=== PATIENT | female | born 1970 | race Caucasian/White ===

== ENCOUNTER 2016-12-08 01:08 | Emergency (ER) | payer MEDICAID, OTHER ==
[2016-12-08] MEDS ORDERED: DIPHENHYDRAMINE HCL 50 MG/ML VIAL IV ONE (02:11)
[2016-12-08] MEDS ORDERED: METOCLOPRAMIDE HCL INJ/PF 10 MG/2 ML SDV IV ONE (02:11)
[2016-12-08] MEDS ORDERED: NORMAL SALINE 1000 ML 500 ML IV ONE (02:12)
[2016-12-08] MEDS ORDERED: MORPHINE SULFATE 10 MG/ML INJ IV ONE (02:12)
--- NOTE | 2016-12-08 02:14 | ER Document Report ---
ED Headache - General Chief Complaint: Headache >24 hrs old Stated Complaint: HEAD PAIN Time Seen by Provider: 12/08/16 02:02 Notes: Patient is a 46-year-old female who comes emergency department for chief complaint of a headache. Headache is throbbing, frontal, she states that she has light and sound sensitivity, she states headache began several days ago but she cannot seem to get rid of it. She has a past medical history of migraines, states she was told they are secondary to a brain aneurysm, she had an MRI and MRA, she has pending follow-up with neurosurgery, she states that she normally takes hydrocodone 10 mg up to 3 times a day if needed, she [place] from [place] but looking to move to this area and looking for a house. She states that she has had a couple of episodes of vomiting per day. She denies fever, neck pain, she denies that this headache is worse than her typical over the past year, she denies any focal numbness or weakness, denies any visual changes, denies any new neurological symptoms. She reports she also takes Lasix for CHF, denies any other medical history. TRAVEL OUTSIDE OF THE [place] IN LAST 30 DAYS: No - Related Data Allergies/Adverse Reactions: No Known Allergies Allergy (Unverified 12/08/16 01:16) Past Medical History - General Information source: Patient - Social History Smoking Status: Never Smoker Drug Abuse: None Lives with: Family Family History: Reviewed & Not Pertinent Patient has suicidal ideation: No Patient has homicidal ideation: No - Past Medical History Cardiac Medical History: Reports: Hx Congestive Heart Failure Neurological Medical History: Reports: Hx Migraine, Other - Cerebral aneurysm Renal/ Medical History: Denies: Hx Peritoneal Dialysis Surgical Hx: Negative - Immunizations Hx Diphtheria, Pertussis, Tetanus Vaccination: Yes Review of Systems - Review of Systems Constitutional: No symptoms reported EENT: No symptoms reported Cardiovascular: No symptoms reported Respiratory: No symptoms reported Gastrointestinal: See HPI Genitourinary: No symptoms reported Female Genitourinary: No symptoms reported Musculoskeletal: No symptoms reported Skin: No symptoms reported Hematologic/Lymphatic: No symptoms reported Neurological/Psychological: See HPI Physical Exam - Vital signs Vitals: Temp Pulse Resp BP Pulse Ox 98.1 F 96 16 147/92 H 97 12/08/16 01:10 12/08/16 01:10 12/08/16 01:10 12/08/16 01:10 12/08/16 01:10 Interpretation: Normal - General General appearance: Appears well, Alert In distress: None - Patient wearing sunglasses, sitting quietly on the bed, shifting occasionally and only appears mildly uncomfortable but is in no distress - HEENT Head: Normocephalic, Atraumatic Eyes: Normal Conjunctiva: Normal Extraocular movements intact: Yes Eyelashes: Normal Pupils: PERRL Nasal: Normal Mouth/Lips: Normal Mucous membranes: Normal Pharynx: Normal Neck: Normal - Respiratory Respiratory status: No respiratory distress Chest status: Nontender Breath sounds: Normal Chest palpation: Normal - Cardiovascular Rhythm: Regular Heart sounds: Normal auscultation Murmur: No - Abdominal Inspection: Normal Distension: No distension Bowel sounds: Normal Tenderness: Nontender Organomegaly: No organomegaly - Back Back: Normal, Nontender - Extremities General upper extremity: Normal inspection, Nontender, Normal color, Normal ROM , Normal temperature General lower extremity: Normal inspection, Nontender, Normal color, Normal ROM , Normal temperature, Normal weight bearing. 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 Will attempt medications first. Patient does not have neurological deficits, she appears mildly uncomfortable but not toxic. After medications patient sleeping, easily aroused, smiling, states that she feels excellent, her headache is gone, and she wants to go home. Did agree to provide patient with short-term medication, referred to neurology and local primary care as requested, she states that she has a close follow-up with her neurologist back home in addition to this. Discussed return precautions, patient states understanding and agreement. - Vital Signs Vital signs: Temp Pulse Resp BP Pulse Ox 98.3 F 78 20 109/61 96 12/08/16 04:35 12/08/16 04:35 12/08/16 04:35 12/08/16 04:35 12/08/16 04:35 Discharge - Discharge Clinical Impression: Headache Qualifiers: Headache type: unspecified Headache chronicity pattern: acute headache Intractability: not intractable Qualified Code(s): R51 - Headache Condition: Stable Disposition: HOME, SELF-CARE Instructions: Family Physicians / Practices Additional Instructions: Your symptoms and response to treatment are consistent with a migraine. Take the pain medication as prescribed as directed previously if needed. Follow-up with local primary care and neurology referrals (see list and referral ) Return to the emergency department for any returns or new concerning symptoms. Prescriptions: Hydrocodone/Acetaminophen [[place] 5-325 mg Tablet] 1 - 2 tab PO ASDIR #15 tablet Referrals: PETTY LEDESMA MD [ACTIVE STAFF] - Follow up as needed
[2016-12-08] MEDS ORDERED: HYDROCODONE/ACETAMINOPHEN 5-325 MG 6 TAB/DSPK PO PRN (04:09)
[2016-12-08 04:40] VITALS: BP 109/61
== END 2016-12-08 04:35 | disposition home or self-care (01) ==
LOC: ER 01:08
DX: R51 Headache (principal); H53.149 Visual discomfort, unspecified; R11.10 Vomiting, unspecified; I50.9 Heart failure, unspecified; Z79.899 Other long term (current) drug therapy
CPT/HCPCS: 99284; 96361; 96374; 96375; J1200; J2765; J2270; J7030

== ENCOUNTER 2017-01-01 19:20 | Emergency (ER) | payer MEDICAID, OTHER ==
--- NOTE | 2017-01-01 20:25 | ER Document Report ---
ED Headache - General Chief Complaint: Headache >24 hrs old Stated Complaint: POSSIBLE MIGRANE Time Seen by Provider: 01/01/17 20:00 Information source: Patient TRAVEL OUTSIDE OF THE [place] IN LAST 30 DAYS: No - HPI Patient complains to provider of: Headache Associated symptoms: denies: Confusion, Dizzy, Double/blurred vision, Memory loss, Motor/sensory loss to leg, Nausea/vomiting, Neck pain, Photophobia, Speech problems, Stiff neck, Tingling/numb sensation, Trouble walking Exacerbated by: Light Similar symptoms previously: Yes Recently seen / treated by doctor: Yes - Related Data Allergies/Adverse Reactions: No Known Allergies Allergy (Verified 01/01/17 19:28) Home Medications: Current Home Medications Alprazolam [Alprazolam] 1 tab PO QHS 01/01/17 [History] Atorvastatin Calcium 1 tab PO QHS 01/01/17 [History] Bupropion HCl [Bupropion Xl] 1 tab PO QAM 01/01/17 [History] Carvedilol [Carvedilol] 0.5 tab PO QAM 01/01/17 [History] Carvedilol [Carvedilol] 0.5 tab PO QHS 01/01/17 [History] Furosemide [Furosemide] 1 tab PO QAM 01/01/17 [History] Lamotrigine [Lamotrigine] 1 tab PO QHS 01/01/17 [History] Lisinopril [Lisinopril] 1 tab PO QHS 01/01/17 [History] Olanzapine [Olanzapine] 1 tab PO QHS 01/01/17 [History] Spironolactone [Spironolactone] 1 tab PO QAM 01/01/17 [History] Zolpidem Tartrate 1 tab PO QHS 01/01/17 [History] Past Medical History - Social History Smoking Status: Never Smoker Family History: Reviewed & Not Pertinent Patient has suicidal ideation: No Patient has homicidal ideation: No - Past Medical History Cardiac Medical History: Reports: Hx Congestive Heart Failure Neurological Medical History: Reports: Hx Migraine Renal/ Medical History: Denies: Hx Peritoneal Dialysis - Immunizations Hx Diphtheria, Pertussis, Tetanus Vaccination: Yes Review of Systems - Review of Systems Constitutional: denies: Fever, Weakness, Recent illness EENT: denies: Eye pain, Blurred vision, Double vision, Sinus pressure, Sinus discharge, Difficulty swallowing Cardiovascular: No symptoms reported Respiratory: No symptoms reported Gastrointestinal: No symptoms reported Musculoskeletal: No symptoms reported Skin: No symptoms reported Neurological/Psychological: denies: Confusion, Dementia, Depression, Anxiety, Hallucinations, Speech impairment Physical Exam - Vital signs Vitals: Temp Pulse Resp BP Pulse Ox 98.3 F 88 18 169/86 H 98 01/01/17 19:38 01/01/17 19:38 01/01/17 19:38 01/01/17 19:38 01/01/17 19:38 - General General appearance: Appears well, Alert In distress: None - HEENT Head: Normocephalic, Atraumatic Eyes: Normal Pupils: PERRL - Respiratory Respiratory status: No respiratory distress Chest status: Nontender Breath sounds: Normal Chest palpation: Normal - Cardiovascular Rhythm: Regular Heart sounds: Normal auscultation Murmur: No - Back Back: Normal, Nontender - Neurological Neuro grossly intact: Yes Cognition: Normal Orientation: AAOx4 [place] Coma Scale Eye Opening: Spontaneous Cheri Coma Scale Verbal: Oriented [place] Coma Scale Motor: Obeys Commands [place] Coma Scale Total: 15 Speech: Normal Motor strength normal: LUE, RUE, LLE, RLE Sensory: Normal - Skin Skin Temperature: Warm Skin Moisture: Dry Skin Color: Normal Course - Re-evaluation Re-evalutation: 01/01/17 20:21 Presents emerged from a chief complaint of headaches as a migraine. Patient was seen and evaluated here on the ninth of this month stated she was from out of town and was looking for a house. She said she had a history of an aneurysm that showed up on an MRA when she was in [place] and she was supposed to follow- up with a neurologist. She said she was on narcotics for her headache and was given a prescription here and declined any imaging. She also was given your neurologist and primary care physician for follow-up and did not follow-up with them. She presents now with a gradual onset of a typical migraine. On examination she is here by herself after I get her in the light on she put her sunglasses on. I removed the sunglasses her pupils are equal react to light bilaterally Xartemis intact no altered mental status normal neurological examination blood pressure and vital signs are stable. I told her CT was negative I would use Toradol Phenergan and Benadryl she states that that does not work she needs narcotic I told her I do not use narcotics for chronic headaches and we need to sort out from the aneurysm was. Asked her to sign a release form so we can get her medical record copy of her MRI and MRA from [facility] in [place]. I am doing a CT of the head to exclude any bleeding. 01/01/17 21:56 Requested records from [facility] but have not received them CT of the head does not show any bleed which would be consistent with rupture. I am not comfortable prescribing her narcotics for this headache at this point and we will have her follow-up with the clinic and the neurologist she has no altered mental status no nuchal rigidity no fever and has a negative CT of the head. She is discharged follow-up with neurology primary care and discussed reasons for ED return sooner 01/01/17 21:59 - Vital Signs Vital signs: Temp Pulse Resp BP Pulse Ox 98.3 F 88 18 169/86 H 98 01/01/17 19:38 01/01/17 19:38 01/01/17 19:38 01/01/17 19:38 01/01/17 19:38 Discharge - Discharge Clinical Impression: Request for narcotic pain medication Cephalgia Qualifiers: Headache type: unspecified Headache chronicity pattern: chronic headache Intractability: not intractable Qualified Code(s): R51 - Headache Condition: Stable Disposition: HOME, SELF-CARE Additional Instructions: Headache The physician does not feel that the headache you are experiencing has a serious underlying cause. Most headaches are due to emotional stress, with resultant muscle tension (tension headache). Occasionally, headaches are secondary to changes in the blood vessels of the scalp (vascular headache and migraine headache). Sometimes, a headache is the first symptom of another developing illness, such as a viral infection. You have no evidence of stroke, bleeding, meningitis, or other serious cause of your headache. The treatment of headaches varies with the severity and cause of the pain. Not all headaches need pain shots. In fact, there is evidence that using narcotics for headaches may make them worse in the long run. The physician will determine the therapy that's in your best interest. If you develop a fever, if the headache is different from any you've previously experienced, or if the headache progressively worsens, then call your physician at once or go to the emergency room. \\Chronic Pain Control Stress, inactivity, and depression make pain more severe regardless of the cause of the pain. Stress and poor physical condition can cause pain such as headaches and backache. Relaxation: Rest in a quiet place with your eyes closed for 20 minutes twice daily. Concentrate on a pleasant image, or simply "feel" your breathing. Clear your mind. Stress management: Deal with your "stressors." Either take action, or eliminate the stressor from your life. Don't let things hang over you. Accept those things you can't change. Nutrition: Eat small, balanced meals -- don't skip, don't overeat. Meals should be high-carbohydrate, low-sugar, low-fat. Exercise: Exercise helps painful conditions and eases stress. Get 30 minutes of moderate exercise, five days a week. Do an activity that does not flare your pain. Precautions: Pain which continues to disrupt daily activities, or which changes in nature, requires a medical evaluation. Pain Clinic referral is available. We do not manage chronic pain in the Emergency Department. 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 We do not provide repeated medication management of chronic painful conditions. If you wish, we can provide the name of local pain management physicians. Referrals: [facility] [Provider Group] - Follow up in 3-5 days (return to Emergency department sooner for increasing worsening or new symptoms All chronic pain related conditions must be managed by primary care physician or pain management.) PETTY LEDESMA MD [ACTIVE STAFF] - (Follow-up with this physician who is our local neurologist for chronic management of headaches.)
--- NOTE | 2017-01-01 21:08 | RADIOLOGY REPORT (SQ) ---
EXAM DESCRIPTION: CT HEAD WITHOUT COMPLETED DATE/TIME: 01/01/2017 8:56 pm REASON FOR STUDY: headache states history aneurysm COMPARISON: None. TECHNIQUE: Axial images acquired through the brain without intravenous contrast. Images reviewed wi th bone, brain and subdural windows. Images stored on PACS. All CT scanners at this facility use dose modulation, iterative reconstruction, and/or weight based d osing when appropriate to reduce radiation dose to as low as reasonably achievable (ALARA). [facility]: Dose Right [facility]: CareDose [facility]: Dose Right [facility]: Teradose 4D [facility]: Smart NexImmune RADIATION DOSE: Up-to-date CT equipment and radiation dose reduction techniques were employed. CTDIv ol: 49.0 mGy. DLP: 881 mGy-cm. mGy. LIMITATIONS: None. FINDINGS: VENTRICLES: Normal size and contour. CEREBRUM: No masses. No hemorrhage. No midline shift. Normal montero/white matter differentiation. N o evidence for acute infarction. CEREBELLUM: No masses. No hemorrhage. No alteration of density. No evidence for acute infarction. EXTRAAXIAL SPACES: No fluid collections. No masses. ORBITS AND GLOBE: No intra- or extraconal masses. Normal contour of globe without masses. CALVARIUM: No fracture. PARANASAL SINUSES: No fluid or mucosal thickening. SOFT TISSUES: No mass or hematoma. OTHER: No other significant finding. IMPRESSION: NORMAL BRAIN CT WITHOUT CONTRAST. TECHNICAL DOCUMENTATION: JOB ID: [id number] Quality ID # [id number]: Final reports with documentation of one or more dose reduction techniques (e.g., Au tomated exposure control, adjustment of the mA and/or kV according to patient size, use of iterative reconstruction technique) 2010 [employer]- All Rights Reserved
[2017-01-01 22:23] VITALS: BP 123/81
== END 2017-01-01 22:20 | disposition home or self-care (01) ==
LOC: ER 19:20
DX: G43.909 Migraine, unspecified, not intractable, without status migrainosus (principal)
CPT/HCPCS: 70450; 99283

== ENCOUNTER 2017-11-20 12:38 | Emergency (ER) | payer SELFPAY ==
[2017-11-20] MEDS ORDERED: ASPIRIN 81 MG TABLET, CHEWABLE PO ONE (13:13)
--- NOTE | 2017-11-20 13:15 | ER Document Report ---
ED Medical Screen (RME) - General Chief Complaint: Chest Pain Stated Complaint: CHEST PAIN Time Seen by Provider: 11/20/17 13:12 Notes: RAPID MEDICAL EVALUATION DISCLOSURE I have seen this patient as part of a Rapid Medical Evaluation and, if applicable, placed any initially appropriate orders. The patient will be seen and fully evaluated, including a full history and physical exam, by a provider ( in Main ED or Fast Track) when a room becomes available. 47-year-old female PMH CHF EF 30% 2 years ago (self-reported) here with complaints of chest pain and shortness of breath ongoing for the past few weeks but progressively worsening. She states that she stopped taking all of her CHF medication 7 months ago because her insurance ran out. She also endorses a "holistic lifestyle". She has not had any leg swelling and reports that she refuses to take diuretics even if she did have any. Today, she felt like she was having some palpitations so she decided to check her blood pressure and heart rate at [facility] and when she saw that was elevated decided to come here. EXAM CTAB Tachycardic Regular rhythm No appreciable BLE edema TRAVEL OUTSIDE OF THE [place] IN LAST 30 DAYS: No - Related Data Allergies/Adverse Reactions: No Known Allergies Allergy (Verified 11/20/17 12:45) Past Medical History - Past Medical History Cardiac Medical History: Reports: Hx Congestive Heart Failure Neurological Medical History: Reports: Hx Migraine Renal/ Medical History: Denies: Hx Peritoneal Dialysis - Immunizations Hx Diphtheria, Pertussis, Tetanus Vaccination: Yes Physical Exam - Vital signs Vitals: Temp Pulse Resp BP Pulse Ox 98.6 F 122 H 16 150/98 H 97 11/20/17 12:43 11/20/17 12:43 11/20/17 12:43 11/20/17 12:43 11/20/17 12:43 Course - Vital Signs Vital signs: Temp Pulse Resp BP Pulse Ox 98.6 F 122 H 16 150/98 H 97 11/20/17 12:43 11/20/17 12:43 11/20/17 12:43 11/20/17 12:43 11/20/17 12:43
[2017-11-20 14:03] LABS: ABSOLUTE BASOPHILS # (AUTO) 0.1 10^3/uL (0.0-0.2); ABSOLUTE LYMPHOCYTES (AUTO) 1.8 10^3/uL (0.5-4.7); ABSOLUTE MONOCYTES (AUTO) 0.4 10^3/uL (0.1-1.4); ABSOLUTE NEUT (AUTO) 3.8 10^3/uL (1.7-8.2); BASOPHILS % (AUTO) 1.3 % (0-2); EOSINOPHILS % (AUTO) 0.5 % (0-6); HEMATOCRIT 43.8 % (36.0-47.0); HEMOGLOBIN 14.6 g/dL (12.0-15.5); LYMPHOCYTES % (AUTO) 29.5 % (13-45); MEAN CORPUSCULAR HEMOGLOBIN 30.4 pg (27.0-33.4); MEAN CORPUSCULAR HGB CONC 33.4 g/dL (32.0-36.0); MEAN CORPUSCULAR VOLUME 91 fl (80-97); PLATELET COUNT 357 10^3/uL (150-450); RED BLOOD COUNT 4.82 10^6/uL (3.72-5.28); RED CELL DISTRIBUTION WIDTH 14.6 % (11.5-14.0); SEGMENTED NEUTROPHILS % (AUTO) 61.7 % (42-78); TOTAL CELLS COUNTED % (AUTO) 100 %; WHITE BLOOD COUNT 6.1 10^3/uL (4.0-10.5)
--- NOTE | 2017-11-20 14:08 | RADIOLOGY REPORT (SQ) ---
EXAM DESCRIPTION: CHEST 2 VIEWS COMPLETED DATE/TIME: 11/20/2017 1:57 pm REASON FOR STUDY: CP SOB COMPARISON: None. EXAM PARAMETERS: NUMBER OF VIEWS: two views TECHNIQUE: Digital Frontal and Lateral radiographic views of the chest acquired. RADIATION DOSE: NA LIMITATIONS: none FINDINGS: LUNGS AND PLEURA: No opacities, masses or pneumothorax. No pleural effusion. Small pulmon nathen nodule is identified projected in the left upper lung field. I would recommend correlation with any prior radiographs or followup films to confirm stability. Alternatively a chest CT scan could be obtained for further evaluation. MEDIASTINUM AND HILAR STRUCTURES: No masses or contour abnormalities. HEART AND VASCULAR STRUCTURES: Heart normal size. No evidence for failure. BONES: No acute findings. HARDWARE: None in the chest. OTHER: No other significant finding. IMPRESSION: Small pulmonary nodule on the left as noted above. I would recommend correlation with a ny prior radiographs or followup films to confirm stability alternatively a chest CT scan could be ob tained for further evaluation. No acute consolidations or pleural effusions are identified. Other f indings as noted above TECHNICAL DOCUMENTATION: JOB ID: [id number] [employer]- All Rights Reserved Reading location - IP/workstation name: [email or web address]
[2017-11-20 14:21] LABS: ALANINE AMINOTRANSFERASE 11 U/L (9-52); ALBUMIN 4.3 g/dL (3.5-5.0); ALKALINE PHOSPHATASE 67 U/L (38-126); ANION GAP 14 (5-19); ASPARTATE AMINO TRANSFERASE 17 U/L (14-36); BILIRUBIN,DIRECT 0.3 mg/dL (0.0-0.4); BILIRUBIN,TOTAL 0.4 mg/dL (0.2-1.3); BLOOD UREA NITROGEN 12 mg/dL (7-20); CALCIUM 9.6 mg/dL (8.4-10.2); CARBON DIOXIDE 30 mmol/L (22-30); CHLORIDE 101 mmol/L (98-107); GLUCOSE 86 mg/dL (75-110); POTASSIUM 4.1 mmol/L (3.6-5.0); SODIUM 144.5 mmol/L (137-145); TOTAL PROTEIN 7.6 g/dL (6.3-8.2)
--- NOTE | 2017-11-20 14:31 | ER Document Report ---
ED General - General Chief Complaint: Chest Pain Stated Complaint: CHEST PAIN Time Seen by Provider: 11/20/17 13:12 Mode of Arrival: Ambulatory Information source: Patient, [facility] Records Notes: 47-year-old female history of CHF hypertension presents with complaints of shortness of breath. Patient notes she has a history of anxiety has been off all her medications since she wishes to live a holistic lifestyle. 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 IN LAST 30 DAYS: No - HPI Onset: Other - 2 week duration Onset/Duration: Persistent, Waxing and waning Quality of pain: Pressure Severity: Mild Pain Level: 1 Associated symptoms: Chest pain, Shortness of breath Exacerbated by: Denies Relieved by: Denies Similar symptoms previously: Yes Recently seen / treated by doctor: Yes - Related Data Allergies/Adverse Reactions: No Known Allergies Allergy (Verified 11/20/17 12:45) Past Medical History - Social History Smoking Status: Never Smoker Cigarette use (# per day): No Chew tobacco use (# tins/day): No Smoking Education Provided: No Drug Abuse: Marijuana Family History: Reviewed & Not Pertinent Patient has suicidal ideation: No Patient has homicidal ideation: No - Past Medical History Cardiac Medical History: Reports: Hx Congestive Heart Failure Neurological Medical History: Reports: Hx Migraine Renal/ Medical History: Denies: Hx Peritoneal Dialysis Past Surgical History: Reports: Hx Section - Immunizations Hx Diphtheria, Pertussis, Tetanus Vaccination: Yes Review of Systems - Review of Systems Notes: REVIEW OF SYSTEMS: CONSTITUTIONAL : Denies fever, chills, or sweats. Denies recent illness. EENT: Denies eye, ear, throat, or mouth pain or symptoms. Denies nasal or sinus congestion or discharge. Denies throat, tongue, or mouth swelling or difficulty swallowing. CARDIOVASCULAR: Admits to chest pain RESPIRATORY: Admits shortness of breath difficulty GASTROINTESTINAL: Denies abdominal pain or distention. Denies nausea, vomiting , or diarrhea. Denies blood in vomitus, stools, or per rectum. Denies black, tarry stools. Denies constipation. GENITOURINARY: Denies difficulty urinating, painful urination, burning, frequency, blood in urine, or discharge. FEMALE GENITOURINARY: Denies vaginal bleeding, heavy or abnormal periods, irregular periods. Denies vaginal discharge or odor. MUSCULOSKELETAL: Denies back or neck pain or stiffness. Denies joint pain or swelling. SKIN: Denies rash, lesions or sores. HEMATOLOGIC : Denies easy bruising or bleeding. LYMPHATIC: Denies swollen, enlarged glands. NEUROLOGICAL: Denies confusion or altered mental status. Denies passing out or loss of consciousness. Denies dizziness or lightheadedness. Denies headache. Denies weakness or paralysis or loss of use of either side. Denies problems with gait or speech. Denies sensory loss, numbness, or tingling. Denies seizures. PSYCHIATRIC: Denies anxiety or stress. Denies depression, suicidal ideation, or homicidal ideation. ALL OTHER SYSTEMS REVIEWED AND NEGATIVE. PHYSICAL EXAMINATION: GENERAL: Well-appearing, well-nourished and in no acute distress. HEAD: Atraumatic, normocephalic. EYES: Pupils equal round and reactive to light, extraocular movements intact, conjunctiva are normal. ENT: Nares patent, oropharynx clear without exudates. Moist mucous membranes. NECK: Normal range of motion, supple without lymphadenopathy LUNGS: Breath sounds clear to auscultation bilaterally and equal. No wheezes rales or rhonchi. pt satting 100% on ra HEART: Regular rate and rhythm without murmurs ABDOMEN: Soft, nontender, nondistended abdomen. No guarding, no rebound. No masses appreciated. Female : deferred Musculoskeletal: Normal range of motion, no pitting or edema. No cyanosis. NEUROLOGICAL: Cranial nerves grossly intact. Normal speech, normal gait. Normal sensory, motor exams PSYCH: Normal mood, normal affect. SKIN: Warm, Dry, normal turgor, no rashes or lesions noted. Dictation was performed using [employer] voice recognition software Physical Exam - Vital signs Vitals: Temp Pulse Resp BP Pulse Ox 98.6 F 122 H 16 150/98 H 97 11/20/17 12:43 11/20/17 12:43 11/20/17 12:43 11/20/17 12:43 11/20/17 12:43 Course - Re-evaluation Re-evalutation: 11/20/17 14:30 pt initially tachy on arrival, this has since resolved 11/20/17 15:57 Patient's blood pressure heart rate has since improved, she is asymptomatic, 11/20/17 16:00 Patient is willing to take the furosemide After performing a Medical Screening Examination, I estimate there is LOW risk for RUPTURED ESOPHAGUS, PNEUMOTHORAX, PULMONARY EMBOLISM, ACUTE CORONARY SYNDROME, OR THORACIC AORTIC DISSECTION, thus I consider the discharge disposition reasonable. I have reevaluated this patient multiple times and no significant life threatening changes are noted. The patient and I have discussed the diagnosis and risks, and we agree with discharging home with close follow-up. We also discussed returning to the Emergency Department immediately if new or worsening symptoms occur. We have discussed the symptoms which are most concerning (e.g., bloody sputum, worsening pain or shortness of breath) that necessitate immediate return. - Vital Signs Vital signs: Temp Pulse Resp BP Pulse Ox 98.6 F 122 H 16 150/98 H 97 11/20/17 12:43 11/20/17 12:43 11/20/17 12:43 11/20/17 12:43 11/20/17 12:43 - Laboratory Result Diagrams: 11/20/17 13:45 11/20/17 13:45 Laboratory results interpreted by me: 11/20/17 11/20/17 13:45 13:45 RDW 14.6 H NT-Pro-B Natriuret Pep 183 H - Diagnostic Test Radiology reviewed: Image reviewed, Reports reviewed - Small nodule noted on x- ray, this is been presenting to the patient, she has been instructed to follow- up for further imaging with primary care - EKG Interpretation by [place] EKG shows normal: Sinus rhythm, [place], Intervals, QRS Complexes Discharge - Discharge Clinical Impression: CHF (congestive heart failure) Qualifiers: Heart failure type: unspecified Heart failure chronicity: unspecified Qualified Code(s): I50.9 - Heart failure, unspecified Insomnia Qualifiers: Insomnia type: other insomnia Qualified Code(s): G47.09 - Other insomnia Condition: Stable Disposition: HOME, SELF-CARE Instructions: Congestive Heart Failure ([facility]) Prescriptions: Zolpidem Tartrate [Ambien] 10 mg PO QHS #5 tablet Furosemide 20 mg PO DAILY #30 tablet Forms: Return to Work Referrals: [facility] [Provider Group] - Follow up tomorrow
[2017-11-20 14:41] LABS: NT PRO BNP 183 pg/mL (<125)
[2017-11-20 14:42] LABS: TROPONIN I < 0.012 ng/mL
[2017-11-20 16:18] VITALS: BP 151/91
--- NOTE | 2017-11-20 20:25 | EKG REPORT ---
SEVERITY:- ABNORMAL ECG - SINUS TACHYCARDIA PROBABLE LEFT ATRIAL ABNORMALITY LEFT VENTRICULAR HYPERTROPHY : Confirmed by: Lazaro Hartmann MD 20-Nov-2017 20:24:40
== END 2017-11-20 16:28 | disposition home or self-care (01) ==
LOC: ER 12:38
DX: I50.9 Heart failure, unspecified (principal); G47.09 Other insomnia; R07.9 Chest pain, unspecified; R06.02 Shortness of breath
CPT/HCPCS: 36415; 71046; 80053; 83880; 84484; 85025; 85379; 93005; 93010; 99285

== ENCOUNTER 2018-03-09 08:11 | Emergency (ER) | payer SELFPAY ==
[2018-03-09 08:22] VITALS: BP 132/73
--- NOTE | 2018-03-09 09:19 | ER Document Report ---
HPI - HPI Pain Level: 4 Notes: Patient is a 47-year-old female no significant past medical history who presents to the ED complaining of left elbow pain status post injury when she was rollerskating yesterday. Patient states she fell on her arm. Patient states that the pain will occasionally radiate proximal and distal, but her primary focus is right to the elbow. Patient states that movements make her pain worse. She denies any drug allergies. No IV drug use. Denies any headache, fever, head injury, neck pain, URI, sore throat, chest pain, palpitations, syncope, cough, shortness of breath, wheeze, dyspnea, abdominal pain, nausea/vomiting/diarrhea, urinary retention, dysuria, hematuria, numbness/ tingling, muscle paralysis/weakness, or rash. - ROS Systems Reviewed and Negative: Yes All other systems reviewed and negative Past Medical History - Social History Smoking Status: Never Smoker Family History: Reviewed & Not Pertinent - Past Medical History Cardiac Medical History: Reports: Hx Congestive Heart Failure Neurological Medical History: Reports: Hx Migraine Renal/ Medical History: Denies: Hx Peritoneal Dialysis Past Surgical History: Reports: Hx Section - Immunizations Hx Diphtheria, Pertussis, Tetanus Vaccination: Yes Vertical Provider Document - CONSTITUTIONAL Agree With Documented VS: Yes Notes: PHYSICAL EXAMINATION: GENERAL: Well-appearing, well-nourished and in no acute distress. NECK: Normal range of motion, supple without lymphadenopathy. Non-tender. Spurling negative. No rigidity/meningismus. LUNGS: Breath sounds clear to auscultation bilaterally and equal. No wheezes rales or rhonchi. HEART: Regular rate and rhythm without murmurs, rubs, gallops. Musculoskeletal: Lt shoulder: FROM to passive/active. Strength 5+/5 due to pain. No crepitus. No erythema or warmth. No deformity or ecchymosis. Left arm: + tenderness to the proximal radius area w/o obvious ecchymosis, swelling, or deformity. LROM at the elbow. FROM at the wrist and distal. N/V intact distal. Extremities: No cyanosis, clubbing, or edema b/l. Peripheral pulses 2+. Capillary refill less than 3 seconds. NEUROLOGICAL: Normal speech, normal gait. Normal sensory PSYCH: Normal mood, normal affect. SKIN: Warm, Dry, normal turgor, no rashes or lesions noted. - INFECTION CONTROL TRAVEL OUTSIDE OF THE [place] IN LAST 30 DAYS: No Course - Re-evaluation Re-evalutation: 03/09/18 10:09 Patient is an afebrile, well-hydrated, 47-year-old female who presents to the ED with a fracture to the left radial head, nondisplaced. Vitals are acceptable without any significant tachycardia, tachypnea, or hypoxia. PE is otherwise unremarkable for any neurovascular compromise, obvious tendon/ ligament rupture, open fracture, septic joint. See XR result. Splint applied today and sling provided. Patient was given 1 tablet of [place] and a [place] dispense pack to go home with. Patient is nontoxic-appearing. No other labs or imaging warranted at this time based on H&P. Conservative measures otherwise for symptoms. Recheck with your PCM in 3-5 days. Call orthopedics today/tomorrow to schedule an appointment for further evaluation and management. Return to the ED with any worsening/concerning symptoms otherwise as reviewed in discharge. Patient is in agreement. - Vital Signs Vital signs: Temp Pulse Resp BP Pulse Ox 97.5 F 73 16 132/73 H 99 03/09/18 08:17 03/09/18 08:17 03/09/18 08:17 03/09/18 08:17 03/09/18 08:17 Procedures - Immobilization Left Arm Time completed: 10:00 Pre-Proc Neuro Vasc Exam: Normal Immobilizer type: Long arm posterior Performed by: PCT Post-Proc Neuro Vasc Exam: Normal, Unchanged from pre-exam Discharge - Discharge Clinical Impression: Fracture of radial head, left, closed Qualifiers: Encounter type: initial encounter Fracture alignment: nondisplaced Qualified Code(s): S52.125A - Nondisplaced fracture of head of left radius, initial encounter for closed fracture Condition: Stable Disposition: HOME, SELF-CARE Instructions: Radial Head Fracture ([facility]), Splint Precautions ([facility]), Oral Narcotic Medication ([facility]) Additional Instructions: Rest, Ice, Compression, Elevation Use splint/sling as directed Tylenol/ibuprofen as needed F/u with your PCP in 3-5 days for a recheck Call orthopedics today/tomorrow to schedule appointment for further evaluation and management Return to the ED with any worsening symptoms and/or development of fever, headache, chest pain, palpitations, syncope, shortness of breath, trouble breathing, abdominal pain, n/v/d, muscle weakness/paralysis, numbness/tingling, swelling, redness, or other worsening symptoms that are concerning to you. Forms: Elevated Blood Pressure Referrals: [facility] [Primary Care Provider] - Follow up as needed [facility] [Provider Group] - Follow up in 3-5 days
--- NOTE | 2018-03-09 09:35 | RADIOLOGY REPORT (SQ) ---
EXAM DESCRIPTION: FOREARM LEFT COMPLETED DATE/TIME: 03/09/2018 9:12 am REASON FOR STUDY: fall COMPARISON: None. NUMBER OF VIEWS: Two views. TECHNIQUE: Two radiographic images acquired of the left forearm, including elbow and wrist in at [address] one projection. LIMITATIONS: None. FINDINGS: MINERALIZATION: Normal. BONES: Non-displaced radial head fracture is suggested. SOFT TISSUES: No obvious swelling or foreign body. OTHER: No other significant finding. IMPRESSION: 1. Nondisplaced radial head fracture is suggested. COMMENT: 1. The results of this examination were discussed with the emergency department provider kimmy springer 03/09/2018 at 09:28 hours. TECHNICAL DOCUMENTATION: JOB ID: [id number] [employer]- All Rights Reserved Reading location - IP/workstation name: [email or web address]
[2018-03-09] MEDS ORDERED: HYDROCODONE/ACETAMINOPHEN 5-325 MG TABLET PO ONE (09:49)
[2018-03-09] MEDS ORDERED: ONDANSETRON 4 MG TAB.RAPDIS PO ONE (09:49)
[2018-03-09] MEDS ORDERED: HYDROCODONE/ACETAMINOPHEN 5-325 MG (6 TAB/ER DISP) PO PRN (09:49)
== END 2018-03-09 10:19 | disposition home or self-care (01) ==
LOC: ER 08:11
DX: S52.125A Nondisplaced fracture of head of left radius, initial encounter for closed fracture (principal); V00.121A Fall from non-in-line roller-skates, initial encounter; Y93.51 Activity, roller skating (inline) and skateboarding
CPT/HCPCS: 99283; 73090; 29105; S0119

== ENCOUNTER 2018-10-11 14:18 | Emergency (ER) | payer SELFPAY ==
[2018-10-11] MEDS ORDERED: ASPIRIN 81 MG TABLET, CHEWABLE PO ONE (15:19)
--- NOTE | 2018-10-11 15:21 | ER Document Report ---
ED Medical Screen (RME) - General Chief Complaint: Chest Pain Stated Complaint: CHEST PAIN Time Seen by Provider: 10/11/18 15:13 Primary Care Provider: [facility] [Primary Care Provider] - Follow up as needed Mode of Arrival: Ambulatory Information source: Patient Notes: 48-year-old female presented to ED for complaint of lightheaded dizziness chest pain 5 pound weight gain in the last 2 days. States she is worked up 5 last days of a row 3 of which were 11 hours with no breaks. She states her hands have been feeling tight her feet have been swelling. Patient does have a history of CHF high blood pressure and bipolar. She does smoke a pack per day. Patient is alert oriented respirations regular and unlabored lungs clear to auscultation. There is no pedal edema noted hands do not appear edematous. Will get cardiac work-up EKG BnP chest x-ray and urine and have her reevaluated by another provider. I have greeted and performed a rapid initial assessment of this patient. A comprehensive ED assessment and evaluation of the patient, analysis of test results and completion of medical decision making process will be conducted by an additional ED providers. TRAVEL OUTSIDE OF THE [place] IN LAST 30 DAYS: No - Related Data Allergies/Adverse Reactions: No Known Allergies Allergy (Verified 10/11/18 14:20) Past Medical History - Social History Chew tobacco use (# tins/day): No Frequency of alcohol use: None Drug Abuse: None - Past Medical History Cardiac Medical History: Reports: Hx Congestive Heart Failure Neurological Medical History: Reports: Hx Migraine Renal/ Medical History: Denies: Hx Peritoneal Dialysis Past Surgical History: Reports: Hx Section - Immunizations Hx Diphtheria, Pertussis, Tetanus Vaccination: Yes Physical Exam - Vital signs Vitals: Temp Pulse Resp BP Pulse Ox 98.4 F 91 16 132/82 H 95 10/11/18 14:44 10/11/18 14:44 10/11/18 14:44 10/11/18 14:44 10/11/18 14:44 Course - Vital Signs Vital signs: Temp Pulse Resp BP Pulse Ox 98.4 F 91 16 132/82 H 95 10/11/18 14:44 10/11/18 14:44 10/11/18 14:44 10/11/18 14:44 10/11/18 14:44 Doctor's Discharge - Discharge Referrals: [facility] [Primary Care Provider] - Follow up as needed
[2018-10-11 15:55] LABS: ABSOLUTE BASOPHILS # (AUTO) 0.1 10^3/uL (0.0-0.2); ABSOLUTE MONOCYTES (AUTO) 0.5 10^3/uL (0.1-1.4); ABSOLUTE NEUT (AUTO) 3.3 10^3/uL (1.7-8.2); BASOPHILS % (AUTO) 1.1 % (0-2); EOSINOPHILS % (AUTO) 0.6 % (0-6); HEMATOCRIT 37.4 % (36.0-47.0); HEMOGLOBIN 12.7 g/dL (12.0-15.5); LYMPHOCYTES % (AUTO) 34.5 % (13-45); MEAN CORPUSCULAR HEMOGLOBIN 31.8 pg (27.0-33.4); MEAN CORPUSCULAR HGB CONC 34.1 g/dL (32.0-36.0); MEAN CORPUSCULAR VOLUME 93 fl (80-97); MONOCYTES % (AUTO) 7.7 % (3-13); PLATELET COUNT 299 10^3/uL (150-450); RED BLOOD COUNT 4.01 10^6/uL (3.72-5.28); RED CELL DISTRIBUTION WIDTH 13.1 % (11.5-14.0); SEGMENTED NEUTROPHILS % (AUTO) 56.1 % (42-78); TOTAL CELLS COUNTED % (AUTO) 100 %; WHITE BLOOD COUNT 5.9 10^3/uL (4.0-10.5)
[2018-10-11 16:09] LABS: ALANINE AMINOTRANSFERASE 16 U/L (9-52); ALBUMIN 3.9 g/dL (3.5-5.0); ALKALINE PHOSPHATASE 56 U/L (38-126); ANION GAP 9 (5-19); APPEARANCE,URINE CLEAR; ASPARTATE AMINO TRANSFERASE 17 U/L (14-36); BILIRUBIN,DIRECT 0.3 mg/dL (0.0-0.4); BILIRUBIN,TOTAL 0.5 mg/dL (0.2-1.3); BILIRUBIN,URINE NEGATIVE (NEGATIVE); BLOOD UREA NITROGEN 10 mg/dL (7-20); CARBON DIOXIDE 31 mmol/L (22-30); CHLORIDE 101 mmol/L (98-107); COLOR,URINE STRAW; CREATINE KINASE 104 U/L (30-135); GLUCOSE 89 mg/dL (75-110); GLUCOSE, URINE NEGATIVE (NEGATIVE); KETONES,URINE NEGATIVE (NEGATIVE); LEUKOCYTE ESTERASE,URINE NEGATIVE (NEGATIVE); NITRITE,URINE NEGATIVE (NEGATIVE); POTASSIUM 3.2 mmol/L (3.6-5.0); PROTEIN,URINE NEGATIVE (NEGATIVE); SODIUM 140.6 mmol/L (137-145); TOTAL PROTEIN 6.9 g/dL (6.3-8.2); URINE SPECIFIC GRAVITY 1.005; UROBILINOGEN,URINE NEGATIVE mg/dL (<2.0)
[2018-10-11 16:20] LABS: CREATINE KINASE MB 0.47 ng/mL (<4.55); NT PRO BNP 340 pg/mL (5-900)
[2018-10-11 16:21] LABS: TROPONIN I < 0.012 ng/mL
--- NOTE | 2018-10-11 17:25 | RADIOLOGY REPORT (SQ) ---
EXAM DESCRIPTION: CHEST 2 VIEWS COMPLETED DATE/TIME: 10/11/2018 4:40 pm REASON FOR STUDY: History CHF 5 pound weight gain in the last 2 days COMPARISON: 11/20/2017 TECHNIQUE: Frontal and lateral radiographic views of the chest acquired. NUMBER OF VIEWS: Two view. LIMITATIONS: None. FINDINGS: LUNGS AND PLEURA: No pneumothorax. No consolidation or pleural effusion. Small left upper lobe calcified granuloma. MEDIASTINUM AND HILAR STRUCTURES: Stable. HEART AND VASCULAR STRUCTURES: Stable. BONES: No acute findings. HARDWARE: None in the chest. OTHER: No other significant finding. IMPRESSION: NO ACUTE FINDINGS. TECHNICAL DOCUMENTATION: JOB ID: [id number] [employer]- All Rights Reserved Reading location - IP/workstation name: [email or web address]
--- NOTE | 2018-10-11 18:45 | ER Document Report ---
ED General - General Chief Complaint: Chest Pain Stated Complaint: CHEST PAIN Time Seen by Provider: 10/11/18 15:13 Primary Care Provider: [facility] PATRICK LOPES [NO LOCAL MD] - Follow up as needed Mode of Arrival: Ambulatory TRAVEL OUTSIDE OF THE [place] IN LAST 30 DAYS: No - HPI Notes: Patient is a 48-year-old female that presents to the emergency department for chief complaint of leg edema shortness of breath and chest pain. Patient states that she has congestive heart failure and has been off her carvedilol and Lasix since last January. She states that she has had increased leg edema since starting a new job for the last few days. She states that she is also been having an achiness in the right side of her chest that radiates into her right arm and right neck. This occurs every day and has been for the last few months. She states that usually lasts for an hour or so and then solves. She denies any aggravating or relieving factors to the pain. She denies any associated palpitations with the chest pain. Patient states she has bipolar also and has been off her Ambien and not sleeping well. She has requested it be a prescription for her insomnia. She does not wish to have any SSRI or further psychiatric evaluation of her bipolar. Past Medical History: CHF, bipolar Past Surgical History: Reviewed in chart Social History: Denies drugs alcohol and tobacco Family History: Reviewed and noncontributory for presenting illness Allergies: Reviewed, see documented allergy list. REVIEW OF SYSTEMS: CONSTITUTIONAL : No fever No chills No diaphoresis No recent illness EENT: No vision changes No congestion No sore throat CARDIOVASCULAR: chest pain No palpitations RESPIRATORY: shortness of breath No cough No difficulty breathing GASTROINTESTINAL: No abdominal pain No nausea No vomiting No diarrhea GENITOURINARY: No dysuria No hematuria No difficulty urinating MUSCULOSKELETAL: Leg edema Leg edema No back pain No leg pain No arm pain SKIN: No rashes No lesions LYMPHATIC: No swollen, enlarged glands. NEUROLOGICAL: No lightheadedness No headache No weakness No paresthesias PSYCHIATRIC: No anxiety No depression PHYSICAL EXAMINATION: Vital signs reviewed, nursing noted reviewed. GENERAL: Well-appearing, well-nourished and in no acute distress. HEAD: Atraumatic, normocephalic. EYES: Eyes appear normal, extraocular movements intact, sclera anicteric, conjunctiva are normal. ENT: nares patent, oropharynx clear without exudates. Moist mucous membranes. NECK: Normal range of motion, supple without lymphadenopathy LUNGS: Breath sounds clear to auscultation bilaterally and equal. No wheezes rales or rhonchi. HEART: Tachycardic rate and regular rhythm without murmurs ABDOMEN: Soft, nontender, normoactive bowel sounds. No rebound, guarding, or rigidity. No masses appreciated. EXTREMITIES: Nontender, good range of motion, no pitting or edema. NEUROLOGICAL: No focal neurological deficits. Moves all extremities spontaneously Motor and sensory grossly intact on exam. PSYCH: Rapid pressured speech, anxious, hyperactive SKIN: Warm, Dry, normal turgor, no rashes or lesions noted on exposed skin - Related Data Allergies/Adverse Reactions: No Known Allergies Allergy (Verified 10/11/18 14:20) Past Medical History - General Information source: Patient - Social History Smoking Status: Current Every Day Smoker Chew tobacco use (# tins/day): No Frequency of alcohol use: None Drug Abuse: None Family History: Reviewed & Not Pertinent Patient has suicidal ideation: No Patient has homicidal ideation: No - Past Medical History Cardiac Medical History: Reports: Hx Congestive Heart Failure Neurological Medical History: Reports: Hx Migraine Renal/ Medical History: Denies: Hx Peritoneal Dialysis Past Surgical History: Reports: Hx Section - Immunizations Hx Diphtheria, Pertussis, Tetanus Vaccination: Yes Physical Exam - Vital signs Vitals: Temp Pulse Resp BP Pulse Ox 98.4 F 91 16 132/82 H 95 10/11/18 14:44 10/11/18 14:44 10/11/18 14:44 10/11/18 14:44 10/11/18 14:44 Course - Re-evaluation Re-evalutation: 10/11/18 19:03 Vitals reviewed. Nursing notes reviewed. Patient has no pulmonary edema on chest x-ray. She is oxygenating well on room air. EKG shows no STEMI. She is tachycardic but appears very anxious with rapid pressured speech. Patient has bipolar and is not currently medicated. She is requesting Ambien which I am not comfortable prescribing for this patient giving the long list of side effects. I did offer her referral to port which she states she would take the phone number but will not likely follow-up. I feel her tachycardia is likely related to her borderline manic state. She otherwise appears well kept and is not a threat to her personal safety. She has a negative troponin and her chest pain has been every day for the last few months, I do not currently suspect ACS. I did advise her to get in touch with a shoe trimmer which she states she will attempt to do if she can get insurance back. Patient will be started on her carvedilol for further rate control. She has no appreciable edema on physical exam and Lasix are not currently indicated. Patient will be referred to primary care and cardiology for further management. She was counseled on return precautions and verbalized understanding. Laboratory 10/11/18 10/11/18 10/11/18 15:32 15:32 15:32 WBC 5.9 RBC 4.01 Hgb 12.7 Hct 37.4 MCV 93 MCH 31.8 MCHC 34.1 RDW 13.1 Plt Count 299 Seg Neutrophils % 56.1 Lymphocytes % 34.5 Monocytes % 7.7 Eosinophils % 0.6 Basophils % 1.1 Absolute Neutrophils 3.3 Absolute Lymphocytes 2.0 Absolute Monocytes 0.5 Absolute Eosinophils 0.0 Absolute Basophils 0.1 Sodium 140.6 Potassium 3.2 L Chloride 101 Carbon Dioxide 31 H Anion Gap 9 BUN 10 Creatinine 0.68 Est GFR ( Amer) > 60 Est GFR (Non-Af Amer) > 60 Glucose 89 Calcium 9.0 Total Bilirubin 0.5 Direct Bilirubin 0.3 Neonat Total Bilirubin Not Reportable Neonat Direct Bilirubin Not Reportable Neonat Indirect Bili Not Reportable AST 17 ALT 16 Alkaline Phosphatase 56 Creatine Kinase 104 CK-MB (CK-2) 0.47 Troponin I < 0.012 NT-Pro-B Natriuret Pep 340 Total Protein 6.9 Albumin 3.9 Urine Color Urine Appearance Urine pH Ur Specific [place] Urine Protein Urine Glucose (UA) Urine Ketones Urine Blood Urine Nitrite Urine Bilirubin Urine Urobilinogen Ur Leukocyte Esterase Urine WBC (Auto) Urine RBC (Auto) Squamous Epi Cells Auto Urine Mucus (Auto) Urine Ascorbic Acid 10/11/18 15:32 WBC RBC Hgb Hct MCV MCH MCHC RDW Plt Count Seg Neutrophils % Lymphocytes % Monocytes % Eosinophils % Basophils % Absolute Neutrophils Absolute Lymphocytes Absolute Monocytes Absolute Eosinophils Absolute Basophils Sodium Potassium Chloride Carbon Dioxide Anion Gap BUN Creatinine Est GFR ( Amer) Est GFR (Non-Af Amer) Glucose Calcium Total Bilirubin Direct Bilirubin Neonat Total Bilirubin Neonat Direct Bilirubin Neonat Indirect Bili AST ALT Alkaline Phosphatase Creatine Kinase CK-MB (CK-2) Troponin I NT-Pro-B Natriuret Pep Total Protein Albumin Urine Color STRAW Urine Appearance CLEAR Urine pH 6.0 Ur Specific [place] 1.005 Urine Protein NEGATIVE Urine Glucose (UA) NEGATIVE Urine Ketones NEGATIVE Urine Blood MODERATE H Urine Nitrite NEGATIVE Urine Bilirubin NEGATIVE Urine Urobilinogen NEGATIVE Ur Leukocyte Esterase NEGATIVE Urine WBC (Auto) 0 Urine RBC (Auto) 1 Squamous Epi Cells Auto <1 Urine Mucus (Auto) RARE Urine Ascorbic Acid NEGATIVE Chest X-Ray 10/11/18 15:19 IMPRESSION: NO ACUTE FINDINGS. - Vital Signs Vital signs: Temp Pulse Resp BP Pulse Ox 98.4 F 91 16 132/82 H 95 10/11/18 14:44 10/11/18 14:44 10/11/18 14:44 10/11/18 14:44 10/11/18 14:44 - Laboratory Result Diagrams: 10/11/18 15:32 10/11/18 15:32 Laboratory results interpreted by me: 10/11/18 10/11/18 15:32 15:32 Potassium 3.2 L Carbon Dioxide 31 H Urine Blood MODERATE H - EKG Interpretation by Me Additional EKG results interpreted by me: 10/11/18 19:04 Interpreted by myself [id number]: Sinus tachycardia, rate 106, normal axis, no ectopy, no STEMI, nonspecific T wave abnormalities inferior leads, LVH Discharge - Discharge Clinical Impression: Peripheral edema Chest pain Qualifiers: Chest pain type: unspecified Qualified Code(s): R07.9 - Chest pain, unspecified Condition: Stable Disposition: HOME, SELF-CARE Instructions: Chest Pain of Unclear Cause ([facility]) Additional Instructions: Please return to the emergency department if you have any worsening, or concern of your symptoms. Please return to the emergency department if you develop chest pain, difficulty breathing, severe abdominal pain, or ongoing vomiting. Please follow-up with your primary care physician in 2-3 days and any other recommended physicians. If prescribed, take all medications as directed. If you have any questions or concerns do not hesitate to return the emergency department for evaluation. Prescriptions: Carvedilol [Coreg] 1 tab PO Q12 #14 tab Forms: Return to Work Referrals: [facility] [NO LOCAL MD] - Follow up as needed [facility] [Provider Group] - Follow up as needed [facility] [Provider Group] - Follow up as needed CALIXTO PITTMAN MD [ACTIVE STAFF] - Follow up as needed
[2018-10-11 19:33] VITALS: BP 130/70
--- NOTE | 2018-10-11 23:08 | EKG REPORT ---
SEVERITY:- ABNORMAL ECG - SINUS TACHYCARDIA PROBABLE LEFT VENTRICULAR HYPERTROPHY NONSPECIFIC T ABNORMALITIES, INFERIOR LEADS : Confirmed by: Miriam Nicholas 11-Oct-2018 23:07:54
== END 2018-10-11 19:35 | disposition home or self-care (01) ==
LOC: ER 14:18
DX: R60.0 Localized edema (principal); R07.9 Chest pain, unspecified; R06.02 Shortness of breath; I50.9 Heart failure, unspecified; Z79.899 Other long term (current) drug therapy; F17.200 Nicotine dependence, unspecified, uncomplicated
CPT/HCPCS: 36415; 71046; 80053; 81001; 82550; 82553; 83880; 84484; 85025; 93005; 93010; 99284

== ENCOUNTER 2019-08-19 17:02 | Observation (INO) | payer SELFPAY ==
--- NOTE | 2019-08-19 17:34 | ER Document Report ---
ED Medical Screen (RME) - General Chief Complaint: Chest Tightness Stated Complaint: CHEST TIGHTNESS,SHORT OF BREATH Time Seen by Provider: 08/19/19 17:22 Mode of Arrival: Ambulatory Information source: Patient Notes: 49-year-old female patient with history of CHF presenting with chief complaint of chest pain and shortness of breath. Patient reports symptoms worsening over the last few days. She denies any weight gain or edema. Denies fever. Lung sounds clear and equal bilaterally. I have greeted and performed a rapid initial assessment of this patient. A comprehensive ED assessment and evaluation of the patient, analysis of test results and completion of the medical decision making process will be conducted by additional ED providers. I have specifically instructed the patient or family members with the patient to immediately return to any nursing staff should anything change in the patient's condition or with their chief complaint. TRAVEL OUTSIDE OF THE [place] IN LAST 30 DAYS: No - Related Data Allergies/Adverse Reactions: No Known Allergies Allergy (Verified 10/11/18 14:20) Past Medical History - Social History Frequency of alcohol use: None Drug Abuse: Marijuana - Past Medical History Cardiac Medical History: Reports: Hx Congestive Heart Failure Neurological Medical History: Reports: Hx Migraine Renal/ Medical History: Denies: Hx Peritoneal Dialysis Past Surgical History: Reports: Hx Section - Immunizations Hx Diphtheria, Pertussis, Tetanus Vaccination: Yes Physical Exam - Vital signs Vitals: Temp Pulse Resp BP Pulse Ox 98.6 F 97 16 147/87 H 97 08/19/19 17:19 08/19/19 17:19 08/19/19 17:19 08/19/19 17:19 08/19/19 17:19 Course - Vital Signs Vital signs: Temp Pulse Resp BP Pulse Ox 98.6 F 97 16 147/87 H 97 08/19/19 17:19 08/19/19 17:19 08/19/19 17:19 08/19/19 17:19 08/19/19 17:19
[2019-08-19 17:54] LABS: ABSOLUTE EOSINOPHILS # (AUTO) 0.1 10^3/uL (0.0-0.6); ABSOLUTE LYMPHOCYTES (AUTO) 2.7 10^3/uL (0.5-4.7); ABSOLUTE MONOCYTES (AUTO) 0.5 10^3/uL (0.1-1.4); BASOPHILS % (AUTO) 0.8 % (0-2); EOSINOPHILS % (AUTO) 0.9 % (0-6); HEMOGLOBIN 12.7 g/dL (12.0-15.5); LYMPHOCYTES % (AUTO) 50.3 % (13-45); MEAN CORPUSCULAR HEMOGLOBIN 33.9 pg (27.0-33.4); MEAN CORPUSCULAR HGB CONC 36.1 g/dL (32.0-36.0); MEAN CORPUSCULAR VOLUME 94 fl (80-97); MONOCYTES % (AUTO) 9.8 % (3-13); PLATELET COUNT 277 10^3/uL (150-450); RED BLOOD COUNT 3.73 10^6/uL (3.72-5.28); RED CELL DISTRIBUTION WIDTH 13.4 % (11.5-14.0); SEGMENTED NEUTROPHILS % (AUTO) 38.2 % (42-78); TOTAL CELLS COUNTED % (AUTO) 100 %; WHITE BLOOD COUNT 5.3 10^3/uL (4.0-10.5)
[2019-08-19 18:12] LABS: ALKALINE PHOSPHATASE 48 U/L (38-126); ANION GAP 6 (5-19); ASPARTATE AMINO TRANSFERASE 20 U/L (14-36); BILIRUBIN,TOTAL 0.4 mg/dL (0.2-1.3); BLOOD UREA NITROGEN 10 mg/dL (7-20); CALCIUM 9.3 mg/dL (8.4-10.2); CARBON DIOXIDE 27 mmol/L (22-30); CHLORIDE 105 mmol/L (98-107); GLUCOSE 99 mg/dL (75-110); POTASSIUM 3.5 mmol/L (3.6-5.0); TOTAL PROTEIN 6.9 g/dL (6.3-8.2)
[2019-08-19 18:24] LABS: NT PRO BNP 220 pg/mL (<125)
[2019-08-19 18:25] LABS: TROPONIN I < 0.012 ng/mL
--- NOTE | 2019-08-19 18:46 | RADIOLOGY REPORT (SQ) ---
EXAM DESCRIPTION: CHEST 2 VIEWS COMPLETED DATE/TIME: 08/19/2019 6:24 pm REASON FOR STUDY: chest pain hx of CHF COMPARISON: Two-view chest 11/20/2017, 10/11/2018 EXAM PARAMETERS: NUMBER OF VIEWS: two views TECHNIQUE: Digital Frontal and Lateral radiographic views of the chest acquired. RADIATION DOSE: NA LIMITATIONS: none FINDINGS: LUNGS AND PLEURA: Stable calcified granuloma left upper lobe. No acute infiltrates. No p leural effusion. No pneumothorax. MEDIASTINUM AND HILAR STRUCTURES: No masses or contour abnormalities. HEART AND VASCULAR STRUCTURES: Heart normal size. No evidence for failure. BONES: No acute findings. HARDWARE: None in the chest. OTHER: No other significant finding. IMPRESSION: NO ACUTE RADIOGRAPHIC FINDING IN THE CHEST. TECHNICAL DOCUMENTATION: JOB ID: [id number] 2010 [employer]- All Rights Reserved Reading location - IP/workstation name: [email or web address]
--- NOTE | 2019-08-19 19:04 | EKG REPORT ---
SEVERITY:- NORMAL ECG - SINUS RHYTHM LVH W/ SECONDARY REPOLARIZATION ABNORMALITIES : Confirmed by: Miriam Nicholas 19-Aug-2019 19:03:54
[2019-08-19] MEDS ORDERED: NITROGLYCERIN 0.4 MG/TAB 25 TAB/BOTTLE SL PRN ×2 (20:18→22:16)
[2019-08-19] MEDS ORDERED: ASPIRIN 325 MG TABLET PO ONE (20:31)
--- NOTE | 2019-08-19 20:35 | ER Document Report ---
ED General - General Chief Complaint: Chest Tightness Stated Complaint: CHEST TIGHTNESS,SHORT OF BREATH Time Seen by Provider: 08/19/19 17:22 Mode of Arrival: Ambulatory Notes: 49-year-old female presents emergency department complaining of several weeks of intermittent substernal chest pressure that she describes as a tightness that has gotten progressively worse and hit its worst today. States that it worsens with exertion and will radiate to her right arm, she has dyspnea with exertion but overnight denies orthopnea, edema or weight gain. Admits to history of congestive heart failure. She had a cardiac catheterization in 2016 that showed a 30% blockage of 1 of her coronary arteries, she does not remember which. Has not had catheterization, echocardiogram or stress test since then. Does not take daily Lasix. Has been out of her blood pressure medications for several months. Pain is currently a 1 out of 5 sitting in the bed. Patient additionally admits that for 2 years she has been having intermittent hot flashes with sweating and sensation of her heart racing. These started around the time that her menstrual cycle stopped. She is uncertain whether they are related to her heart or to menopause. TRAVEL OUTSIDE OF THE [place] IN LAST 30 DAYS: No - Related Data Allergies/Adverse Reactions: No Known Allergies Allergy (Verified 10/11/18 14:20) Past Medical History - General Information source: Patient - Social History Smoking Status: Current Every Day Smoker Frequency of alcohol use: None Drug Abuse: Marijuana Family History: CAD - Dad, CVA - Dad Patient has suicidal ideation: No Patient has homicidal ideation: No - Past Medical History Cardiac Medical History: Reports: Hx Congestive Heart Failure, Hx Hypertension Neurological Medical History: Reports: Hx Migraine Renal/ Medical History: Denies: Hx Peritoneal Dialysis Past Surgical History: Reports: Hx Section - x2, Hx Gynecologic Surgery - cervical biopsy - Immunizations Hx Diphtheria, Pertussis, Tetanus Vaccination: Yes Review of Systems - Review of Systems Constitutional: No symptoms reported Cardiovascular: See HPI, Chest pain, Palpitations, Heart racing, Dyspnea. de nies: Orthopnea Respiratory: See HPI, Short of breath - Dyspnea on exertion.. denies: Cough Gastrointestinal: No symptoms reported -: Yes All other systems reviewed and negative Physical Exam - Vital signs Vitals: Temp Pulse Resp BP Pulse Ox 98.6 F 97 16 147/87 H 97 08/19/19 17:19 08/19/19 17:19 08/19/19 17:19 08/19/19 17:19 08/19/19 17:19 Interpretation: Hypertensive - Notes Notes: GENERAL: Alert, interacts well. No acute distress. HEAD: Normocephalic, atraumatic EYES: Pupils equal, round and reactive to light, extraocular movements intact. ENT: Oral mucosa moist, tongue midline. NECK: Full range of motion, supple, trachea midline. LUNGS: Clear to auscultation bilaterally, no wheezes, rales or rhonchi, no respiratory distress. HEART: Regular rate and rhythm, no murmurs, gallops, rubs. ABDOMEN: Soft, nontender, nondistended, bowel sounds present in all 4 quadrants. EXTREMITIES: Moves all 4 extremities spontaneously, no edema, radial and dorsalis pedis pulses 2/4 bilaterally. No cyanosis. NEUROLOGICAL: Alert and oriented x3, normal speech. PSYCH: Normal mood, mildly anxious, becomes tearful when discussing possibility of acute coronary syndrome. SKIN: Warm, Dry, normal turgor, no rashes or lesions noted. Course - Re-evaluation Re-evalutation: 08/19/19 20:34 CBC unremarkable, CMP grossly unremarkable, initial troponin negative, proBNP not consistent with acute CHF at 220. EKG does have some changes concerning for ischemia but not infarction. Patient's pain is 1 out of 5, will be given nitroglycerin and aspirin. 08/19/19 22:22 Chest pain resolved and EKG normalized with 1 nitroglycerin. Patient will be given a shot of Lovenox, repeat troponin is negative, patient was discussed with Dr. Corral and he asked that she be placed in observation on telemetry. - Vital Signs Vital signs: Temp Pulse Resp BP Pulse Ox 98.6 F 97 16 147/87 H 100 08/19/19 17:19 08/19/19 17:19 08/19/19 17:19 08/19/19 17:19 08/19/19 19:00 - Laboratory Result Diagrams: 08/19/19 17:40 08/19/19 17:40 Laboratory results interpreted by me: 08/19/19 08/19/19 08/19/19 17:40 17:40 17:40 Hct 35.0 L MCH 33.9 H MCHC 36.1 H Lymph % (Auto) 50.3 H Seg Neutrophils % 38.2 L Potassium 3.5 L NT-Pro-B Natriuret Pep 220 H - EKG Interpretation by Me Additional EKG results interpreted by me: 08/19/19 20:35 EKG shows sinus rhythm at a rate of 98, LVH, ST segment depressions in 2, 3, aVF with T wave inversions in 3 and aVF, also ST segment depressions in V4 with T wave inversions in V5 and V6, these changes are new from prior EKG in October 2018 per my interpretation. 08/19/19 22:22 Repeat EKG at 2107 shows sinus bradycardia at a rate of 54, normal axis, normal intervals, no ST segment elevations or depressions, no T wave inversions, all abnormalities have resolved compared to prior EKG per my interpretation. Discharge - Discharge Clinical Impression: Chest pain, rule out acute myocardial infarction Condition: Fair Disposition: ADMITTED OBSERVATION Admitting Provider: Ellis (Hospitalist) Unit Admitted: Telemetry
[2019-08-19] MEDS ORDERED: ACETAMINOPHEN 325 MG TABLET PO ONE (20:37)
[2019-08-19] MEDS ORDERED: MAG HYDROX/AL HYDROX/SIMETH SUSP 30 ML UDCUP PO PRN (22:16)
[2019-08-19] MEDS ORDERED: ENOXAPARIN SODIUM INJ 60 MG/0.6 ML DISP.SYRIN SUBCUT SCH (22:30)
[2019-08-19] MEDS ORDERED: INFLUENZA QUAD (6MOS+) 2019-20 VAC 0.5 ML SYR IM ONE (23:37)
[2019-08-20] MEDS ORDERED: ZOLPIDEM TARTRATE 5 MG TABLET PO ONE (01:45)
--- NOTE | 2019-08-20 06:11 | PDOC H&P ---
History of Present Illness Admission Date/PCP: 08/19/19 22:41 Patient complains of: Chest pain History of Present Illness: KELLY SILVERIO is a 49 year old female with a past medical history of remote congestive heart failure of unknown known etiology and unclear current status, tobacco dependence, anxiety with panic and bipolar type I who denies current medications. She presents with 3 weeks of intermittent chest pain exacerbated by exertion it is 3-5 and dull in nature radiates to the back associated with shortness of breath but no palpitations nausea or vomiting. Her symptoms are relieved by rest and exacerbated by exertion prompting evaluation emergency room where has ST depressions. Her symptoms and EKG changes are corrected by nitroglycerin per the emergency room provider she is chest pain-free and referred to the hospitalist for admission. Patient denies recent cardiac stress test. She does admit to a history of anxiety with panic but denies this manifestation in the past. Past Medical History Cardiac Medical History: Reports: Congestive Heart Failure, Hypertension Neurological Medical History: Reports: Migraine Psychiatric Medical History: Reports: Bipolar Disorder, General Anxiety Disorder, Substance Abuse, Tobacco Dependency Past Surgical History Past Surgical History: Reports: Section - x2 Social History Information Source: Patient Lives with: Spouse/Significant other Smoking Status: Current Every Day Smoker Frequency of Alcohol Use: None Drugs: Marijuana - Advance Directive Resuscitation Status: Full Code Family History Family History: CAD - Dad, CVA - Dad Parental Family History Reviewed: Yes Children Family History Reviewed: Yes Sibling(s) Family History Reviewed.: Yes Medication/Allergy Home Medications: Carvedilol 3.125 mg PO DAILY #30 tablet 11/20/17 Furosemide 20 mg PO DAILY #30 tablet 11/20/17 Carvedilol [Coreg] 1 tab PO Q12 #14 tab 10/11/18 Allergies/Adverse Reactions: No Known Allergies Allergy (Verified 10/11/18 14:20) Review of Systems Constitutional: ABSENT: chills, fever(s), headache(s), weight gain, weight loss Eyes: ABSENT: visual disturbances Ears: ABSENT: hearing changes Cardiovascular: PRESENT: as per HPI, chest pain, dyspnea on exertion. ABSENT: edema, orthropnea, palpitations Respiratory: ABSENT: cough, hemoptysis Gastrointestinal: ABSENT: abdominal pain, constipation, diarrhea, hematemesis, hematochezia, nausea, vomiting Genitourinary: ABSENT: dysuria, hematuria Musculoskeletal: ABSENT: joint swelling Integumentary: ABSENT: rash, wounds Neurological: ABSENT: abnormal gait, abnormal speech, confusion, dizziness, focal weakness, syncope Psychiatric: PRESENT: as per HPI, anxiety. ABSENT: depression, homidical ideation, suicidal ideation Endocrine: ABSENT: cold intolerance, heat intolerance, polydipsia, polyuria Hematologic/Lymphatic: ABSENT: easy bleeding, easy bruising Physical Exam Vital Signs: Temp Pulse Resp BP Pulse Ox 97.3 F 63 18 150/78 H 100 08/19/19 23:34 08/19/19 23:34 08/19/19 23:34 08/19/19 23:34 08/19/19 23:34 Intake & Output 08/18/19 08/19/19 08/20/19 11:59 11:59 11:59 Weight 53.3 kg General appearance: PRESENT: no acute distress, well-developed, well-nourished Head exam: PRESENT: atraumatic, normocephalic Eye exam: PRESENT: conjunctiva pink, EOMI, PERRLA. ABSENT: scleral icterus Ear exam: PRESENT: normal external ear exam Mouth exam: PRESENT: moist, tongue midline Neck exam: ABSENT: carotid bruit, JVD, lymphadenopathy, thyromegaly Respiratory exam: PRESENT: clear to auscultation cesar. ABSENT: rales, rhonchi, wheezes Cardiovascular exam: PRESENT: RRR. ABSENT: diastolic murmur, rubs, systolic murmur Pulses: PRESENT: normal dorsalis pedis pul Vascular exam: PRESENT: normal capillary refill GI/Abdominal exam: PRESENT: normal bowel sounds, soft. ABSENT: distended, guarding, mass, organolmegaly, rebound, tenderness Rectal exam: PRESENT: deferred Extremities exam: PRESENT: full ROM. ABSENT: calf tenderness, clubbing, pedal edema Neurological exam: PRESENT: alert, awake, oriented to person, oriented to place, oriented to time, oriented to situation, CN II-XII grossly intact. ABSENT: motor sensory deficit Psychiatric exam: PRESENT: appropriate affect, normal mood. ABSENT: homicidal ideation, suicidal ideation Skin exam: PRESENT: dry, intact, warm. ABSENT: cyanosis, rash Results Laboratory Results: 08/19/19 17:40 08/19/19 17:40 08/19/19 08/19/19 08/19/19 17:40 17:40 17:40 WBC 5.3 RBC 3.73 Hgb 12.7 Hct 35.0 L MCV 94 MCH 33.9 H MCHC 36.1 H RDW 13.4 Plt Count 277 Seg Neutrophils % 38.2 L Sodium 138.4 Potassium 3.5 L Chloride 105 Carbon Dioxide 27 Anion Gap 6 BUN 10 Creatinine 0.63 Est GFR ( Amer) > 60 Glucose 99 Calcium 9.3 Magnesium Total Bilirubin 0.4 AST 20 Alkaline Phosphatase 48 Total Protein 6.9 Albumin 4.0 TSH 0.91 08/19/19 20:59 WBC RBC Hgb Hct MCV MCH MCHC RDW Plt Count Seg Neutrophils % Sodium Potassium Chloride Carbon Dioxide Anion Gap BUN Creatinine Est GFR ( Amer) Glucose Calcium Magnesium 2.0 Total Bilirubin AST Alkaline Phosphatase Total Protein Albumin TSH 08/19/19 08/19/19 08/20/19 17:40 20:59 04:11 Troponin I < 0.012 < 0.012 < 0.012 NT-Pro-B Natriuret Pep 220 H Impressions: Chest X-Ray 08/19/19 17:30 IMPRESSION: NO ACUTE RADIOGRAPHIC FINDING IN THE CHEST. Assessment and Plan - Diagnosis (1) Chest pain, rule out acute myocardial infarction Is this a current diagnosis for this admission?: Yes Plan: chest pain will observe and evaluation of acute coronary syndrome versus coronary artery disease with anginal equivalents. Cardiac monitoring blood pressure Q6 hours ,TSH, lipid profile, serial cardiac enzymes and cardiac stress test (2) Tobacco dependence Is this a current diagnosis for this admission?: Yes Plan: Tobacco cessation counseling performed, nicotine replacement options discussed (3) Bipolar 1 disorder Is this a current diagnosis for this admission?: Yes Plan: Suggest outpatient follow-up with mental health - Time Time Spent with patient: 25-34 minutes - Inpatient Certification Medical Necessity: Need Close Monitoring Due to Risk of Patient Decompensation
[2019-08-20 06:47] VITALS: BP 138/88
[2019-08-20] MEDS ORDERED: ENOXAPARIN SODIUM INJ 40 MG/0.4 ML DISP.SYRIN SUBCUT SCH (10:00)
[2019-08-20] MEDS ORDERED: ASPIRIN 81 MG TABLET, CHEWABLE PO SCH (10:00)
--- NOTE | 2019-08-20 11:01 | PDOC CONSULTATION ---
Consultation Consult Date: 08/20/19 Attending physician:: TED MARSH Provider Consulted: FREDERIC SARGENT Consult reason:: Chest pain History of Present Illness Admission Date/PCP: 08/19/19 22:41 Patient complains of: Chest pain History of Present Illness: KELLY SILVERIO is a 49 year old female with history of heart failure of unknown etiology since 2016, nonobstructive coronary artery disease with 30% lesion in an unknown vessel diagnosed in 2016 hypertension, hyperlipidemia, tobacco use of less than 1 pack/day for 26 years, no alcohol intake, use of marijuana who is consulted to our service for evaluation of chest pain. The patient moved to [place] several months ago at which point she lost her medical insurance therefore has not followed up with any provider on a regular basis. She states that for the last month she has been having exertional chest pain as well as dyspnea on exertion, her pain feels like a tightness, in a non- annual fashion, localized to the substernal region, with occasional radiation to the back, associated with shortness of breath, relieved by rest and not associated with diaphoresis, palpitations, syncope or presyncope. He came to the emergency room yesterday where she was noted to have ST depressions which resolved with sublingual nitroglycerin. She again had chest pain which was debora ated with nitroglycerin with resolution of her symptoms. The case was initially discussed with cardiology but she was placed on the schedule for a Lexiscan nuclear stress test however upon reviewing her EKGs I was able to confirm dynamic EKG changes therefore the stress test was aborted. This morning she continues to be at her baseline and without any particular cardiovascular complaints. Past Medical History Cardiac Medical History: Reports: Congestive Heart Failure, Hypertension Neurological Medical History: Reports: Migraine Psychiatric Medical History: Reports: Bipolar Disorder, General Anxiety Di sorder, Substance Abuse, Tobacco Dependency Past Surgical History Past Surgical History: Reports: Section - x2 Social History Lives with: Spouse/Significant other Smoking Status: Current Every Day Smoker Frequency of Alcohol Use: None Drugs: Marijuana - Advance Directive Resuscitation Status: Full Code Family History Family History: CAD - Dad, CVA - Dad Parental Family History Reviewed: Yes Children Family History Reviewed: Yes Sibling(s) Family History Reviewed.: Yes Medication/Allergy Home Medications: No Home Medications 08/20/19 Allergies/Adverse Reactions: No Known Allergies Allergy (Verified 10/11/18 14:20) Physical Exam Vital Signs: Temp Pulse Resp BP Pulse Ox 98.2 F 54 L 19 138/88 H 100 08/20/19 06:46 08/20/19 07:00 08/20/19 06:46 08/20/19 06:46 08/20/19 06:46 Intake & Output 08/19/19 08/20/19 08/21/19 06:59 06:59 06:59 Weight 53.3 kg General appearance: PRESENT: no acute distress, well-developed, well-nourished Head exam: PRESENT: atraumatic, normocephalic Eye exam: PRESENT: conjunctiva pink, EOMI, PERRLA. ABSENT: scleral icterus Neck exam: ABSENT: carotid bruit, JVD, lymphadenopathy, thyromegaly Respiratory exam: PRESENT: clear to auscultation cesar. ABSENT: rales, rhonchi, wheezes Cardiovascular exam: PRESENT: RRR. ABSENT: diastolic murmur, rubs, systolic murmur Pulses: PRESENT: normal dorsalis pedis pul Extremities exam: PRESENT: full ROM. ABSENT: calf tenderness, clubbing, pedal edema Results Laboratory Results: 08/19/19 17:40 08/19/19 17:40 08/19/19 08/19/19 08/19/19 17:40 17:40 17:40 WBC 5.3 RBC 3.73 Hgb 12.7 Hct 35.0 L MCV 94 MCH 33.9 H MCHC 36.1 H RDW 13.4 Plt Count 277 Seg Neutrophils % 38.2 L Sodium 138.4 Potassium 3.5 L Chloride 105 Carbon Dioxide 27 Anion Gap 6 BUN 10 Creatinine 0.63 Est GFR ( Amer) > 60 Glucose 99 Calcium 9.3 Magnesium Total Bilirubin 0.4 AST 20 Alkaline Phosphatase 48 Total Protein 6.9 Albumin 4.0 TSH 0.91 08/19/19 20:59 WBC RBC Hgb Hct MCV MCH MCHC RDW Plt Count Seg Neutrophils % Sodium Potassium Chloride Carbon Dioxide Anion Gap BUN Creatinine Est GFR ( Amer) Glucose Calcium Magnesium 2.0 Total Bilirubin AST Alkaline Phosphatase Total Protein Albumin TSH 08/19/19 08/19/19 08/20/19 17:40 20:59 04:11 Troponin I < 0.012 < 0.012 < 0.012 NT-Pro-B Natriuret Pep 220 H Impressions: Chest X-Ray 08/19/19 17:30 IMPRESSION: NO ACUTE RADIOGRAPHIC FINDING IN THE CHEST. Assessment & Plan - Diagnosis (1) Chest pain, rule out acute myocardial infarction Is this a current diagnosis for this admission?: Yes Plan: 49-year-old female with nonobstructive coronary artery disease on [facility] in 2016 details of which are not available for my review at this time. She has a history consistent with unstable angina with dynamic EKG changes in the emergency room which resolved with sublingual nitroglycerin. She again had another episode of chest pain on the floor which resolved with sublingual nitroglycerin. At this time I do not believe performing a nuclear stress test in this facility is safe for the patient therefore [facility] later on today. I already discussed the case with Dr. Fidencio Blas who graciously will try to the procedure this afternoon depending on how soon we can get the patient to [place]. I discussed the case with the hospitalist, Dr. Price, who graciously accepted the patient. At this point will just waiting for transport. In the meantime we will continue with sublingual nitroglycerin as well as anticoagulation. Of note, the patient only received the resting images of her Lexiscan as I cancel the stress portion. (2) Heart failure Qualifiers: Heart failure chronicity: chronic Plan: The patient is euvolemic today. Recommendations: -Continue with current medical management for now. -Echocardiogram to assess systolic and diastolic function. -The [facility] will [facility].
--- NOTE | 2019-08-20 11:02 | PDOC TRANSFER SUMMARY ---
General Admission Date/PCP: 08/19/19 22:41 Admission Date: 08/20/19 Transfer Date: 08/20/19 Accepting Facility: [facility] Resuscitation Status: Full Code - Transfer Diagnosis (1) Unstable angina pectoris due to coronary arteriosclerosis Is this a current diagnosis for this admission?: Yes - Transfer Medications Home Medications: No Home Medications 08/20/19 Transfer Medications: Current Medications Al Hydrox/Mg Hydrox/Simethicone (Maalox Plus Susp 30 Udcup) 30 ml PO Q4HP PRN PRN Reason: HEARTBURN Stop: 09/18/19 22:15 Aspirin (Aspirin 81 Mg Chewable Tablet) 324 mg PO DAILY ANTONIA Stop: 09/19/19 09:59 Atorvastatin Calcium (Lipitor 80 Mg Tablet) 80 mg PO QHS ANTONIA Stop: 09/19/19 21:59 Enoxaparin Sodium (Lovenox Inj 40 Mg/0.4 Ml Disp.Syrin) 40 mg SUBCUT DAILY ANTONIA Stop: 09/19/19 09:59 Nitroglycerin (Nitrostat 0.4 Mg (1/150 Gr) Tabs 25/Bottle) 1 tab SL Q5MP PRN PRN Reason: FOR CHEST PAIN Sodium Chloride (Saline Flush 2.5 Ml Monoject Prefil Syrin) 2.5 ml IV Q8 ANTONIA Stop: 09/19/19 05:59 Last Admin: 08/20/19 06:39 Dose: Not Given Documented by: Zolpidem Tartrate (Ambien 5 Mg Tablet) 10 mg PO QHS [facility] Stop: 08/27/19 21:59 - Allergies Allergies/Adverse Reactions: No Known Allergies Allergy (Verified 10/11/18 14:20) - Diet/Activity Discharge Diet: Other (Comments) - npo for procedure Discharge Activity: Other - per accepting facility Hospital Course Hospital Course: Per H&P: "KELLY SILVERIO is a 49 year old female with a past medical history of remote congestive heart failure of unknown known etiology and unclear current status, tobacco dependence, anxiety with panic and bipolar type I who denies current medications. She presents with 3 weeks of intermittent chest pain exacerbated by exertion it is 3-5 and dull in nature radiates to the back associated with shortness of breath but no palpitations nausea or vomiting. Her symptoms are relieved by rest and exacerbated by exertion prompting evaluation emergency room where has ST depressions. Her symptoms and EKG changes are corrected by n itroglycerin per the emergency room provider she is chest pain-free and referred to the hospitalist for admission. Patient denies recent cardiac stress test. She does admit to a history of anxiety with panic but denies this manifestation in the past." A stress test was ordered but Dr. Bhakta evaluated the patient and felt like she would probably not tolerate a stress test, and that she would be a good candidate for cardiac catheterization. Troponins here have been negative, but she did display some ST depression in the lateral leads on EKG. Dr. Cheung at [facility] was contacted by Dr. Bhakta, and the outcome of the conversation was that the patient would be transferred there for cardiac catheterization. Patient is hemodynamically stable and medically stable at time of dictation. Physical Exam Vital Signs: Temp Pulse Resp BP Pulse Ox 98.2 F 54 L 19 138/88 H 100 08/20/19 06:46 08/20/19 07:00 08/20/19 06:46 08/20/19 06:46 08/20/19 06:46 Intake & Output 08/19/19 08/20/19 08/21/19 06:59 06:59 06:59 Weight 53.3 kg General appearance: PRESENT: no acute distress, cooperative Respiratory exam: PRESENT: clear to auscultation cesar, symmetrical, unlabored. ABSENT: accessory muscle use, chest wall tenderness, crackles, prolonged expiratory phas, retraction, rhonchi, tachypnea, wheezes Cardiovascular exam: PRESENT: RRR, +S1, +S2 Pulses: PRESENT: normal carotid pulses Vascular exam: PRESENT: normal capillary refill GI/Abdominal exam: PRESENT: normal bowel sounds, soft. ABSENT: distended, guarding, rebound, tenderness Extremities exam: ABSENT: clubbing, pedal edema Musculoskeletal exam: PRESENT: normal inspection. ABSENT: deformity Neurological exam: PRESENT: alert, awake, oriented to person, oriented to place, oriented to situation Psychiatric exam: PRESENT: appropriate affect Skin exam: PRESENT: dry, warm Results Laboratory Results: 08/19/19 17:40 08/19/19 17:40 08/19/19 08/19/19 08/19/19 17:40 17:40 17:40 WBC 5.3 RBC 3.73 Hgb 12.7 Hct 35.0 L MCV 94 MCH 33.9 H MCHC 36.1 H RDW 13.4 Plt Count 277 Seg Neutrophils % 38.2 L Sodium 138.4 Potassium 3.5 L Chloride 105 Carbon Dioxide 27 Anion Gap 6 BUN 10 Creatinine 0.63 Est GFR ( Amer) > 60 Glucose 99 Calcium 9.3 Magnesium Total Bilirubin 0.4 AST 20 Alkaline Phosphatase 48 Total Protein 6.9 Albumin 4.0 TSH 0.91 08/19/19 20:59 WBC RBC Hgb Hct MCV MCH MCHC RDW Plt Count Seg Neutrophils % Sodium Potassium Chloride Carbon Dioxide Anion Gap BUN Creatinine Est GFR ( Amer) Glucose Calcium Magnesium 2.0 Total Bilirubin AST Alkaline Phosphatase Total Protein Albumin TSH 08/19/19 08/19/19 08/20/19 17:40 20:59 04:11 Troponin I < 0.012 < 0.012 < 0.012 NT-Pro-B Natriuret Pep 220 H Impressions: Chest X-Ray 08/19/19 17:30 IMPRESSION: NO ACUTE RADIOGRAPHIC FINDING IN THE CHEST. Plan Time Spent: Greater than 30 Minutes
--- NOTE | 2019-08-20 18:21 | EKG REPORT ---
SEVERITY:- OTHERWISE NORMAL ECG - SINUS ARRHYTHMIA, RATE 46-68 : Confirmed by: Miriam Nicholas 20-Aug-2019 18:20:56
[2019-08-20] MEDS ORDERED: ATORVASTATIN CALCIUM 80 MG TABLET PO SCH (22:00)
[2019-08-20] MEDS ORDERED: ZOLPIDEM TARTRATE 5 MG TABLET PO SCH (22:00)
== END 2019-08-20 13:01 | disposition short-term general hospital (02) ==
LOC: ER 17:02 → EH 22:41 → 4N 23:30
PROVIDERS: ADMIT Internal Medicine; ATTEND Family Medicine
DX: I25.110 Atherosclerotic heart disease of native coronary artery with unstable angina pectoris (principal); I11.0 Hypertensive heart disease with heart failure; I50.9 Heart failure, unspecified; F17.210 Nicotine dependence, cigarettes, uncomplicated; F31.9 Bipolar disorder, unspecified; F41.1 Generalized anxiety disorder; Z59.7 Insufficient social insurance and welfare support; F12.10 Cannabis abuse, uncomplicated; R00.1 Bradycardia, unspecified; F19.11 Other psychoactive substance abuse, in remission; Z82.49 Family history of ischemic heart disease and other diseases of the circulatory system
CPT/HCPCS: 93005; 99285; 36415 ×2; 83735; 84443; 85025; 80053; 84484 ×2; 83036; 83880; 71046; 78451; 93010; G0378 ×2; A9500; Q9969

== ENCOUNTER 2020-01-23 12:24 | Emergency (ER) | payer SELFPAY ==
[2020-01-23] MEDS ORDERED: OXYCODONE-ACETAMINOPHEN 5-325 MG TABLET PO ONE (12:55)
--- NOTE | 2020-01-23 12:55 | ER Document Report ---
ED Medical Screen (RME) - General Chief Complaint: Fall Injury Stated Complaint: FALL, RIB PAIN Time Seen by Provider: 01/23/20 12:52 Mode of Arrival: Wheelchair Notes: 49-year-old female presented to ED for complaint of severe left chest wall pain. She states about an hour ago she fell in the tub landing with her ribs on the side of the tub. She has severe rib pain on the left side. There is no actual bruising at this time. Lungs are clear but mildly diminished. Will get x-rays and have her reexamined. O2 sat is 100%. I have greeted and performed a rapid initial assessment of this patient. A comprehensive ED assessment and evaluation of the patient, analysis of test results and completion of medical decision making process will be conducted by an additional ED providers. TRAVEL OUTSIDE OF THE [place] IN LAST 30 DAYS: No - Related Data Allergies/Adverse Reactions: No Known Allergies Allergy (Verified 01/23/20 12:52) Past Medical History - Past Medical History Cardiac Medical History: Reports: Hx Congestive Heart Failure, Hx Hypertension Neurological Medical History: Reports: Hx Migraine Renal/ Medical History: Denies: Hx Peritoneal Dialysis Psychiatric Medical History: Reports: Hx Bipolar Disorder Past Surgical History: Reports: Hx Section - x2, Hx Gynecologic Surgery - cervical biopsy - Immunizations Hx Diphtheria, Pertussis, Tetanus Vaccination: Yes Physical Exam - Vital signs Vitals: Temp Pulse Resp BP Pulse Ox 97.9 F 51 L 18 118/56 L 100 01/23/20 12:29 01/23/20 12:29 01/23/20 12:01/23/20 12:29 01/23/20 12:29 Course - Vital Signs Vital signs: Temp Pulse Resp BP Pulse Ox 97.9 F 51 L 18 118/56 L 100 01/23/20 12:29 01/23/20 12:29 01/23/20 12:29 01/23/20 12:29 01/23/20 12:29
--- NOTE | 2020-01-23 13:44 | ER Document Report ---
ED Fall - General Chief Complaint: Fall Injury Stated Complaint: FALL, RIB PAIN Time Seen by Provider: 01/23/20 12:52 Primary Care Provider: ORLANDO DOWELL MD [Primary Care Provider] - Follow up as needed Mode of Arrival: Wheelchair Notes: 49-year-old female past medical history significant for coronary artery disease presents to the emergency room complaining of left lower rib pain. Patient states she was cleaning the bathtub when she lost her balance fell hitting her left ribs on the tub. She denies hitting her head. No loss of consciousness. Denies shortness of breath or difficulty breathing. Does state it hurts when she tries to take a deep breath she took ibuprofen with minimal relief. No history of previous rib fractures. TRAVEL OUTSIDE OF THE [place] IN LAST 30 DAYS: No - Related data Allergies/Adverse Reactions: No Known Allergies Allergy (Verified 01/23/20 12:52) Home Medications: see nurse note Past Medical History - General Information source: Patient - Social History Smoking Status: Current Every Day Smoker Chew tobacco use (# tins/day): No Frequency of alcohol use: Occasional Drug Abuse: Marijuana Family History: CAD - Dad, CVA - Dad Patient has homicidal ideation: No - Past Medical History Cardiac Medical History: Reports: Hx Congestive Heart Failure, Hx Hypertension Neurological Medical History: Reports: Hx Migraine Renal/ Medical History: Denies: Hx Peritoneal Dialysis Psychiatric Medical History: Reports: Hx Bipolar Disorder Past Surgical History: Reports: Hx Section - x2, Hx Gynecologic Surgery - cervical biopsy - Immunizations Hx Diphtheria, Pertussis, Tetanus Vaccination: Yes Review of Systems - Review of Systems Cardiovascular: No symptoms reported Respiratory: No symptoms reported Gastrointestinal: No symptoms reported Musculoskeletal: Other - Left rib pain Skin: No symptoms reported Neurological/Psychological: No symptoms reported -: Yes All other systems reviewed and negative Physical Exam - Vital signs Vitals: Temp Pulse Resp BP Pulse Ox 97.9 F 51 L 18 118/56 L 100 01/23/20 12:29 01/23/20 12:29 01/23/20 12:29 01/23/20 12:29 01/23/20 12:29 - General General appearance: Appears well, Alert In distress: Mild - Respiratory Respiratory status: No respiratory distress Chest status: Nontender Breath sounds: Normal Chest palpation: Normal - Cardiovascular Rhythm: Regular Heart sounds: Normal auscultation Murmur: No Notes: Tenderness on palpation to the left lower lateral ribs. No deformity noted. - Back Back: Normal, Nontender. No: CVA tenderness - Neurological Neuro grossly intact: Yes Cognition: Normal Orientation: AAOx4 Barry Coma Scale Eye Opening: Spontaneous Barry Coma Scale Verbal: Oriented Cheri Coma Scale Motor: Obeys Commands Barry Coma Scale Total: 15 Speech: Normal Motor strength normal: LUE, RUE, LLE, RLE Sensory: Normal - Skin Skin Temperature: Warm Skin Moisture: Dry Skin Color: Normal Course - Re-evaluation Re-evalutation: 01/23/20 16:26 Patient is resting comfortably with decreased pain. Reviewed x-ray results with patient. Counseled to take pain medication as prescribed. Use incentive spirometer as directed. E force records were reviewed no history of narcotic abuse. Okay for prescription. Recheck with primary care physician if not improving in 2 to 3 days. Patient was given strict return to the emergency room guidelines. Return for any new or worsening symptoms. All questions were answered. Patient verbalized understanding and agrees with plan of care. 01/23/20 17:53 - Vital Signs Vital signs: Temp Pulse Resp BP Pulse Ox 97.6 F 58 L 15 126/61 H 100 01/23/20 16:45 01/23/20 16:45 01/23/20 16:45 01/23/20 16:45 01/23/20 16:45 - Diagnostic Test Radiology reviewed: Reports reviewed Discharge - Discharge Clinical Impression: Left rib fracture Qualifiers: Encounter type: initial encounter Rib fracture type: single rib Fracture type: closed Qualified Code(s): S22.32XA - Fracture of one rib, left side, initial encounter for closed fracture Condition: Stable Disposition: HOME, SELF-CARE Instructions: Rib Injuries and Fractures ([facility]) Additional Instructions: Take pain medications as prescribed. Use incentive spirometer as discussed. Patient was instructed on use of incentive spirometer. Recheck with primary ca re physician if not improving in 2 to 3 days. Return to the emergency room for any new or worsening symptoms. Prescriptions: Oxycodone HCl/Acetaminophen [Percocet 5-325 mg Tablet] 1 tab PO Q4H PRN #12 tablet PRN Reason: For Pain Referrals: ORLANDO DOWELL MD [Primary Care Provider] - Follow up as needed
--- NOTE | 2020-01-23 15:15 | RADIOLOGY REPORT (SQ) ---
EXAM DESCRIPTION: RIBS LEFT W/PA CHEST IMAGES COMPLETED DATE/TIME: 01/23/2020 2:18 pm REASON FOR STUDY: Right rib pain fell COMPARISON: 08/19/2019 TECHNIQUE: Frontal view of the chest and additional views of the right ribs acquired. NUMBER OF VIEWS: Three view. LIMITATIONS: None. FINDINGS: FRONTAL CXR: Left upper lobe calcified granuloma. No pneumothorax. No pleural effusion. No atelectasis or infiltrates. RIBS: There is a nondisplaced transverse fracture of the right 9th rib anterolaterally. OTHER: No other significant finding. IMPRESSION: Nondisplaced transverse fracture of right rib 9. COMMENT: SITE OF TRAUMA/COMPLAINT MARKED/STAMP COMPLETED: NO. TECHNICAL DOCUMENTATION: JOB ID: [id number] 2010 [employer]- All Rights Reserved Reading location - IP/workstation name: [email or web address]
[2020-01-23 16:52] VITALS: BP 126/61
== END 2020-01-23 16:52 | disposition home or self-care (01) ==
LOC: ER 12:24
DX: S22.32XA Fracture of one rib, left side, initial encounter for closed fracture (principal); R07.81 Pleurodynia; W19.XXXA Unspecified fall, initial encounter; Y92.002 Bathroom of unspecified non-institutional (private) residence as the place of occurrence of the external cause; F17.200 Nicotine dependence, unspecified, uncomplicated; I11.0 Hypertensive heart disease with heart failure; I50.9 Heart failure, unspecified; I25.10 Atherosclerotic heart disease of native coronary artery without angina pectoris; Z79.899 Other long term (current) drug therapy; Z79.82 Long term (current) use of aspirin
CPT/HCPCS: 99284